=== PATIENT | female | born 1940 ===

== ENCOUNTER 2024-04-04 10:39 | Outpatient (CLI) | payer OTHER | END 2024-04-04 10:45 | disposition home or self-care (01) | LOC: SONOGRAMA 10:39 | PROVIDERS: ATTEND Internal Medicine Gastroenterology | DX: R10.11 Right upper quadrant pain (principal); K80.20 Calculus of gallbladder without cholecystitis without obstruction ==

== ENCOUNTER 2024-04-09 12:57 | Outpatient (CLI) | payer OTHER | END 2024-04-09 13:05 | disposition home or self-care (01) | LOC: TOM 12:57 | PROVIDERS: ATTEND Internal Medicine | DX: K52.832 Lymphocytic colitis (principal) | CPT/HCPCS: 74177; Q9965 ==

== ENCOUNTER 2024-12-25 12:50 | Outpatient (CLI) | payer OTHER ==
[~2024-12-25 12:50] MED LIST: LOSARTAN POTASS50 MG PO; MEMANTINE HCL10 MG PO; SYNTHROID50 MCG PO
== END 2024-12-25 12:57 | disposition home or self-care (01) ==
LOC: RAD 12:50
DX: M17.11 Unilateral primary osteoarthritis, right knee (principal); R07.9 Chest pain, unspecified